=== PATIENT | female | born 2000 | race Caucasian/White ===

== ENCOUNTER 2025-01-21 00:05 | Day surgery (SDC) | payer OTHER, SELFPAY ==
[2025-01-06 13:57] VITALS: BMI 44.0
--- NOTE | 2025-01-06 14:04 | SUR.PREOP ---
Report to the Outpatient Waiting Room, entrance under the green pavilion located off [facility], at time 10a.m. on date 01/21/2025. Planned Procedure Time: 12p.m..? Time changes happen often and if your time is changed the preop area will call you the afternoon before. - You and your visitor will be asked to self-screen and do not enter if you have any COVID symptoms. Please call surgeon if you need to reschedule. - A mask is optional within the hospital at this time. Patients may have clear liquids (water, carbonated beverages, clear teas, apple juice) until 3 hours prior to surgery with a maximum of 20 ounces. - No food from midnight until time of surgery and no smoking, or chewing tobacco (or any form of nicotine). No chewing gum, candy or mints. Take only the following medications with a SIP of water on the morning of surgery: N/A DO NOT STOP ANY OF YOUR OTHER PRESCRIPTION MEDICATIONS PRIOR TO SURGERY EXCEPT THE FOLLOWING Hold all vitamins and supplements for 3 days per anesthesiologist. Medications to discontinue per physician N/A Date to take last dose N/A Please no make-up, nail british, hairspray, perfume, deodorant, or body powder the day of surgery.? No jewelry (including any body piercings) or valuables the day of surgery, leave them at home.? Please take a shower or bath the night before, or the morning of, surgery with an antibacterial soap.? Wear comfortable, loose fitting clothing.? Children are encouraged to wear pajamas. - Jewelry must be removed prior to entering the operating room.? Rings and piercings that are not removed may be cut off. - The hospital will not accept responsibility for valuables.? - Please leave all valuables, including medications, at home the day of surgery. If you are going home after surgery, a licensed racing car driver must drive you home.? - NO public transportation without another adult if you receive anesthesia. - We recommend that an adult stay with you for 24 hours following discharge. - We also recommend that you do not drive, make important decision, drink alcoholic beverages, or take any drugs that were not prescribed by your health care provider for at least 24 hours after your discharge time. Follow any additional instructions given to you from your surgeon. Telephone instructions given to Miranda Figueroa and asked if any additional questions and then verbalized understanding. Patient advised to call surgeon office or pre surgery nurse liaison [phone] if any additional questions.
[2025-01-21] VITALS (9 sets, daily range): BP systolic 107–142; BP diastolic 53–75; PULSE 66–96; RESP 14–70; TEMP 36.6–37; O2SAT 94–100; BMI 47.2
--- OUTSIDE RECORDS SUMMARY | 2025-01-21 00:08 | XMS_ITS | Data Portability ---
Author Organization [facility] [place] Address [address] [place] [address] Care Team Providers Care Government Affairs Manager Name Role Phone JIGAR HOLCOMB Primary Care Provider Assessment No assessment recorded. Plan of Treatment Reminders Order Date Submit Date Provider Last Modified By Organization Details Last Modified Time Details Appointments SURG Diagnosti c Lap 2024 07:30A Edin MCALLISTER MD Not available Not available Not available SURG POST OP 2024 11:15A Edin MCALLISTER MD Not available Not available Not available Lab test, urine 2023 024 [email or web address] [facility], [address], [place], [address], 06/17/2024 11:41:30 Referral None recorded. Procedures None recorded. Surgeries None recorded. Imaging US, transvagi nal 2023 024 efren [facility], [address], [address], [place], [address], 08/18/2024 21:47:02 US, pelvis 2023 024 efren [facility], [address], [address], [place], [address], 03/04/2024 20:53:52 US, transvagi nal 2023 024 efren [facility], [address], [address], [place], [address], 03/04/2024 20:53:52 US, pelvis, complete 2023 024 [email or web address] [place], [facility] [address], [place], [address], 03/10/2024 14:02:45 Medication Orders Depo-Prov era 150 mg/mL intramusc ular suspensio n 2023 024 [id number], [address] [facility], [place], [place], [id number], 06/17/2024 12:02:23 Patient TargetsNo targets recorded. Patient InstructionsNo instructions recorded. Reason for Referral None Reported. Results Created Date Observation Date Name Description Value Unit Range Abnormal Flag Note LastModifiedBy Organization Detail LastModifiedTime 06/17/20 24 06/17/2024 pregn jameel test, urine HCG negati ve Not Available [facility] [address], [place], [address], 06/17/2024 11:41:19 03/04/20 24 03/04/2024 US, pelvi s No observ ation record ed. [facility] [address], [place], [address], 03/04/2024 17:54:54 03/04/20 24 03/04/2024 US, trans vagin al No observ ation record ed. [facility] [address], [place], [address], 03/04/2024 17:55:04 03/04/20 24 03/04/2024 US, pelvi s No observ ation record ed. SOFIA [facility]row [address], [place], [address], 03/09/2024 13:08:05 08/12/20 24 08/13/2024 US, pelvi s No observ ation record ed. [facility] [address], [place], [address], 08/13/2024 17:20:09 08/12/20 24 08/13/2024 US, trans vagin al No observ ation record ed. [facility] [address], [place], [address], 08/13/2024 17:20:23 08/18/20 24 08/18/2024 US, trans vagin al No observ ation record ed. [email or web address] [facility] [address], [place], [address], 08/18/2024 15:22:53 08/18/20 24 08/18/2024 US, trans vagin al No observ ation record ed. [email or web address] [facility] [address], [place], [address], 08/24/2024 23:00:54 Result Notes None recorded. Procedures Surgical History Date Name Laterality Status Provider Name and Address Organization Details Recorded Time 024 Nexplanon Removal completed SHAI MCALLISTER MD [address], [place], [address], [facility] 06/17/2024 12:15:54 024 Control Implant Insertion completed NINA Soto [address], [place], [address], [facility] 01/28/2024 16:47:51 024 Date of Last Pap Smear completed Alma Rosa Oleary [facility] 03/03/2024 15:18:52 014 Appendectomy completed Alma Rosa Oleary [facility] 03/03/2024 15:19:56 014 Cholecystectomy completed Alma Rosa Oleary [facility] 03/03/2024 15:20:01 Imaging Results Imaging Date Name Status LastModified by Organization Details LastModified Time 03/04/2024 US, pelvis completed judah Newby [address], [place], [address], 03/04/2024 17:54:54 03/04/2024 US, transvaginal completed judah Bonilla e [address], [place], [address], 03/04/2024 17:55:04 03/04/2024 US, pelvis completed SOFIA Odalys [address], [place], [address], 03/09/2024 13:08:05 08/13/2024 US, pelvis completed judah Newby [address], [place], [address], 08/13/2024 17:20:09 08/13/2024 US, transvaginal completed judah Bonilla e [address], [place], [address], 08/13/2024 17:20:23 08/18/2024 US, transvaginal completed [email or web address] Mackenzievill e [address], [place], [address], 08/18/2024 15:22:53 08/18/2024 US, transvaginal completed [email or web address] [facility] [address], [place], [address], 08/24/2024 23:00:54 Procedure Notes None recorded. Medical Equipment None Reported. Allergies No known drug allergies Medications Name Sig Start Date Stop Date Status Note LastModified by Organization Details LastModified Time Aviane 0.1 mg-20 mcg tablet TAKE 1 TABLET BY MOUTH ONCE DAILY 01/20 completed Not Available Not Available Not Available doxycyclin e hyclate 100 mg capsule TAKE 1 CAPSULE BY MOUTH TWICE DAILY FOR 7 DAYS 01/20 completed Not Available Not Available Not Available metronidaz ole 500 mg tablet Take 1 tablet twice a day by oral route for 7 days. 09/14 completed Not Available Not Available Not Available nystatin-t riamcinolo ne 100,000 unit/gram- 0.1 % topical ointment APPLY TO THE AFFECTED AREA(S) (externa l vulva) BY TOPICAL ROUTE 2 TIMES PER DAY x 5 days 01/20 completed Not Available Not Available Not Available phenazopyr idine 100 mg tablet TAKE 1 TABLET BY MOUTH THREE TIMES DAILY NEEDED FOR 7 DAYS 01/20 completed Not Available Not Available Not Available Diflucan 200 mg tablet 1 tablet PO every other day x 3 doses. 09/14 completed Not Available Not Available Not Available medroxypro gesterone 150 mg/mL intramuscu lar suspension ADMINIST ER 1 ML IN THE MUSCLE EVERY 3 MONTHS active Not Available Not Available No t Available doxycyclin e hyclate 100 mg tablet Take 1 tablet twice a day by oral route for 7 days. 09/14 completed Not Available Not Available Not Available azithromyc in 500 mg tablet take 2 tablets by mouth at one time. 10/17 completed Not Available Not Available Not Available medroxypro gesterone 150 mg/mL intramuscu lar syringe INJECT 1 ML INTRAMUS CULARLY EVERY 3 MONTHS 2023 active Not Available Not Available Not Avai lable nitrofuran toin monohydrat e/macrocry stals 100 mg capsule TAKE 1 CAPSULE BY MOUTH EVERY 12 HOURS FOR 7 DAYS 01/20 completed Not Available Not Available Not Available Nexplanon 68 mg subdermal implant Inject 1 implant by subcutan eous route. 06/17 completed office supply Not Available Not Available Not Available Vitals Date Recorded Body height Body mass index (BMI) Body weight Systolic blood pressure Diastolic blood pressure Provider Name and Address Organization Details Last Updated DateTime 03/03/2024 172.72 cm 44.2 kg/m2 877137.3 8 g 114 mm[Hg] 77 mm[Hg] Alma Rosa Oleary [place] - [facility] 4 15:17:59 Date Recorded Body height Body mass index (BMI) Body weight Systolic blood pressure Diastolic blood pressure Provider Name and Address Organization Details Last Updated DateTime 06/17/2024 172.72 cm 44.4 kg/m2 410946.2 5 g 124 mm[Hg] 81 mm[Hg] Christine Gomez [facility] 4 11:34:42 Date Recorded Body height Body mass index (BMI) Body weight Systolic blood pressure Diastolic blood pressure Provider Name and Address Organization Details Last Updated DateTime 09/15/2024 172.72 cm 45.8 kg/m2 856202.3 g 124 mm[Hg] 82 mm[Hg] Kasey Eliza [facility] 4 12:01:35 Social History Question Answer Notes LastModified by Organizat ion Details LastModified Time Tobacco Smoking Status Never Smoker Dora mendoza, [facility] 01/21/2024 15:59:23 Do You Have An Advance Directive? No Information n ot available 08/17/2021 What Is Your Level Of Alcohol Consumption? Occasional Information not available 08/17/2021 How Many Years Have You Consumed Alcohol? 5 Information not available 01/21/2024 Are You Blind Or Do You Have Difficulty Seeing? No Information n ot available 08/17/2021 What Is Your Level Of Caffeine Consumption? Occasional Information not available 01/21/2024 In The 14 Days Before Symptom Onset, Have You Had Close Contact With A Laboratory-confirm ed COVID-19 While That Case Was Ill? No Information n ot available 08/17/2021 In The 14 Days Before Symptom Onset, Have You Had Close Contact With A Person Who Is Under Investigation For COVID-19 While That Person Was Ill? No Information not available 08/17/2021 Have You Been To An Area Known To Be High Risk For COVID-19? No Information not available 08/17/2021 Are You Deaf Or Do You Have Serious Difficulty Hearing? No Information not available 08/17/2021 What Type Of Diet Are You Following? REGULAR Information n ot available 08/17/2021 What Is The Highest Grade Or Level Of School You Have Completed Or The Highest Degree You Have Received? [id number] Information not available 08/17/2021 Are There Any Guns Present In Your Home? Yes Information not available 08/17/2021 Do You Use Protection During Sex? No Information not available 08/17/2021 Do You Use Your Seat Belt Or Car Seat Routinely? Yes Information not available 01/21/2024 Do You Have Smoke And Carbon Monoxide Detectors In Your Home? Yes Information not available 08/17/2021 How Much Tobacco Do You Smoke? No Information not available 09/14/2021 Do You Feel Stressed (tense, Restless, Nervous, Or Anxious, Or Unable To Sleep At Night)? [id number] Information not available 08/17/2021 Do You Use Any Illicit Or Recreational Drugs? No Information not available 08/17/2021 Do You Use Sunscreen Routinely? No Information not available 08/17/2021 Have You Used IV Drugs? No Information not available 08/17/2021 Sex: Unknown Functional Status Question Answer Note LastModified by Organizat ion Details LastModified Time Do you have difficulty walking or climbing stairs? No Information not available 01/21/2024 Are you able to walk? YESWOREST Information not available 08/17/2021 Are you able to care for yourself? Yes Information not available 01/21/2024 Do you have difficulty dressing or bathing? No Information not available 01/21/2024 What is your exercise level? None Information not available 08/17/2021 Mental Status None recorded. Family History Relationship Description Onset Age of this Age Resolved Age Notes LastModified by Organization Details LastModified Time Unspecified Relation Family history unknown [email or web address] Not available 2023 10:52:24 Mother Malignant tumor of breast [email or web address] Not available 2023 11:30:29 Medical History Condition Response Allergies (Food, seasonal, environmental ) N Other N Blood Transfusion N Drug/Latex Allergies/Reactions N Breast Cancer N Dermatologic Disorders N Lung Disease N Defects or Inherited Disease N Breast Problem N Gestational Diabetes N Hematologic disorders N Anesthesia Complications N History of STI N Deep Vein Thrombosis N Polycystic ovary syndrome N Anxiety Disorder N Autoimmune disease N Arthritis N Infertility N Polyps N Acid Reflux (GERD) Y History of abnormal pap N Cancer N Stroke N Varicosities N Neurologic/Epilepsy N Endometriosis N High Cholesterol N Headaches N Fibromyalgia N Kidney Disease N Heart Problems N Kidney or Bladder Problems N Thyroid Problems N GI Problems N Eating Disorder N Anemia N Art (IVF or FET) N Psychiatric Illness N Ovarian Cancer N Diabetes N Pulmonary (TB, Asthma) N Hepatitis/Liver Disease N No Past Medical History Y Eczema N Urinary Tract Infection N Abuse/Domestic Violence N Asthma N Trauma/Violence N Depression/ depression N Heart Disease N Pre-Eclampsia N Hypertension N Osteoporosis N Thrombophilias N Gynecological History Statement/Question Response Abnormal Pap N Flow Light Date of LMP 09/10/2024 On BCP's at Conception? N N Was last menstrual period normal N STIs/STDs Y HPV Vaccine N Duration of Flow (days) 2 13 Current Control Method Implant Date of control 02/04/2024 Sexually Active? Y BCPs Menses Monthly N Age of first menstrual cycle 13 Date of Last Pap Smear 01/21/2024 Sexual Problems? Y Desired Control Method Implant LMP Unknown N Obstetrics History GPAL:G 0 P 0 0 0 0 Type Value Living 0 Total 0 Past Encounters Encounter ID Performer Location Encounter Start Date Encounter Closed Date Diagnosis/Indication Diagnosis SNOMED-CT Code Diagnosis ICD10 Code Diagnosis Note [id number] Emily Carrillo [facility] [address] [address] 08/17/2021 10:33:43 08/17/2021 12:16:19 Vaginitis 98469329 N76.0 N94.10 Suspect BV/Yeast is culprit for dyspareuni a & irritation she is currently having.Korey l treat today & if stll having issues within 1-2wks return to discuss.Rx sent Time spent in visit is a total of 32 mins with at least 50% of visit consisting of counseling and review of plan of care.Addit ional precaution cassandra measures were taken to minimize potential exposure to the Covid-19 virus during this patient s visit, including available hand blasting machine operator upon arrive, temperatur e check and being asked a series of screening questions. All staff wore face coverings during this encounter, as well as provided additional cleaning and sanitizing of all surfaces, including countertop s, pens, chairs, door handles, light switches, etc, prior to and following the patient s visit. Reproducti ve care management 803890934 Z31.9 Trying to achieve pregnancyO nly began a few week agoMenses regular no issues advised PNV/Smokin g cessation/ healthy diet/exerc iseCan take up to a year of actively trying which is commonPart ner has had two kids with his previous partner. [id number] Emily Carrillo [facility] [address] [address] 09/14/2021 14:39:11 09/14/2021 15:39:44 Vaginitis 69324259 N76.0 N94.10 DARIELA sent today vag cxReviewed VCG's and will start this for possible component of vestibulit is.Will await vaginitis cx return.If DARIELA returns + we can also send refill for her partner as well (states no allergies) .Also recommende d Bits toiletries website for vaginal probiotics to restore vaginal health & might be a good idea since she has very frequent sex. Time spent in visit is a total of 15 mins with at least 50% of visit consisting of counseling and review of plan of care.Addit ional precaution cassandra measures were taken to minimize potential exposure to the Covid-19 virus during this patient s visit, including available hand blasting machine operator upon arrive, temperatur e check and being asked a series of screening questions. All staff wore face coverings during this encounter, as well as provided additional cleaning and sanitizing of all surfaces, including countertop s, pens, chairs, door handles, light switches, etc, prior to and following the patient s visit. [id number] [facility] [address] [address] 10/17/2021 15:35:56 10/17/2021 16:41:51 Venereal disease screening 152731777 Z11.3 Today, we discussed risks associated with continued +STD screens including but not limited to: PID/Infert ility/Pelv ic pain/Dyspa reuina/Uri nary issues/Inc rease risks SAB. Discussed the need to abstain until BOTH partners have completed a 7 day course of Doxycyclin e.Will likely need to continue vcg's to help restore vulvovagin al health & also consider use of vaginal probiotic previously discussed. Understand ing was verbalized by both partners. Will send medication with 1 RF so partner is able to be treated as well.He has confirmed no allergies to any medication s/foods. Contracept ion care management 493439113 Z30.9 Discussed all control options in depth and pt is interested in Nexplanon. Discussed all risks and benefits including irregular unschedule d bleeding. Pt verbalized understand ing and would like to proceed. She is aware that she needs to call us on the 1st day of her period to schedule placement. She & her partner have no health insurance. We discussed Office germain including device & insertion of device; and also informed them that our Rohit reyes would reach out and inquire about the assistance program [employer] has for patient's to see if the device itself could be covered. Other options would be to visit a [facility] near her & inquire about prices as well. Aware that this device needs to be placed within 5 days of onset of menses. [id number] Emily Carrillo , [facility] [address] [address] 11/29/2021 12:00:15 11/29/2021 14:45:16 Urinary symptoms 361093388 R39.9 Treat for UTITesting sent Vaginal irritation 65152 6004 N89.8 We again discussed strict vulvar care guidelines and to include Lady bits toiletries vaginal gel probiotic to help restore microbiome in this area. It may take up to 3mos before sx's are well managed. It is important to be consistent . Possibly avoid penile penetratio n for a bit until vaginal entry way is less irritated. If no improvemen ts after 3mos we need to consider refer to [facility] for further evaluation /managemen t. Time spent in visit is a total of 15 mins with at least 50% of visit consisting of counseling and review of plan of care.Addit ional precaution cassandra measures were taken to minimize potential exposure to the Covid-19 virus during this patient s visit, including available hand blasting machine operator upon arrive, harrison e check and being asked a series of screening questions. All staff wore face coverings during this encounter, as well as provided additional cleaning and sanitizing of all surfaces, including countertop s, pens, chairs, door handles, light switches, etc, prior to and following the patient s visit. [id number] Emily Carrillo , [facility] [address] [address] 01/21/2024 15:43:36 01/21/2024 17:24:51 Gynecologic examination 18894987 Z01.419 SELF PAY Take Calcium with Vitamin D 1200mg daily if not receiving in daily diet. It is strongly advised to have an annual flu shot and up can obtain at most pharmacies . If you have not had a TDap shot in the last 10 years you should obtain one as well. Discussed with patient & provided with informatio n regarding Gardisil vaccine to prevent the 4 strains for HPV that cause cervical cancer if under age 26. Encourage safe sexual practices, to use condoms and limit partners if not already in a monogamous relationsh ip. Do monthly self breast exams. Have mammogram yearly or every other year depending on family history. BRCA testing is now available for patients with strong genetic history of female cancer. If interested contact the office. Engage in daily exercise of low impact aerobic exercise 45-60 minutes 4-5 times weekly. Avoid tobacco and illicit drugs as well as using moderation with alcohol intake less than 1-2 8 oz beverages daily. This lifestyle behavior pattern will lead to less health conditions and longer life span. If BMI greater than 25 weight watchers or dietary consult advised. Patient received above instructio ns, and questions have been answered. If you have any questions please call or respond to this email. Patient was made aware of the patient portal and may obtain a paper copy of today's plan if desired. Pap sentSTD Screen declined (self pay)Geneti c Screen discussedC olon Screen naDexa Screen naRoutine Labs na Contracept ion care management 086583620 Z30.9 Discussed all control options in depth and pt is interested in Nexplanon. Discussed all risks and benefits including irregular unschedule d bleeding. Pt verbalized understand ing and would like to proceed.Sh e & her partner have no health insurance. We discussed Office germain including device & insertion of device;She has no period on Depo injections ; her last injection was November 2023 and her next will come up in February which is when we need to place nexplanon. [id number] Kassie Virk [facility] [address],[facility] [place] [address] 01/28/2024 16:19:35 01/28/2024 16:53:14 Insertion of subcutaneous contraceptive 089809702 Z30.46 UPT (-)r/b/a of nexplanon discussed with ptconsents reviewed and signednexp lanon placed (see procedure note)preca utions reviewed Contracept ion care management 112543323 Z30.9 [id number] [facility] [address],[place] [address] 03/03/2024 15:04:51 03/03/2024 15:37:37 Pain in pelvis 57995216 R10.2 This patient is a 23-year-ol d female with pelvic pain. We have agreed to complete the evaluation with pelvic ultrasound . The patient will return after the pelvic ultrasound to discuss those findings and to develop a treatment plan. A comprehens mellisa history and physical exam was performed today. We spent over 25 minutes face-to-fa ce. The patient was given precaution s. She will contact clinic if pelvic pain increases in frequency or intensity. Also notify clinic of any new symptoms associated with pelvic pain. She does not appear to have an acute pelvic infection today, but was asked to contact us Immediatel y with nausea, vomiting, fever, chills. Monogamous [id number] Mary Mondragon [facility] [address],[facility] [place] [address] 03/04/2024 15:16:25 03/04/2024 16:07:59 Pain in pelvis 41935878 R10.2 [id number] SHAI MCALLISTER MD [facility] [address],[place] [address] 06/17/2024 10:44:41 06/17/2024 12:21:19 Screening procedure 83862398 Z13.9 Initiation of depot contraception done [id number] 81416 Z30.013 - would like to transition to depo, has used previously with success- r/b and side effects discussed with patient who voices understand ing Removal of subcutaneous contraceptive 715692262 Z30.46 - Nexplanon removed without issue and intact [id number] Mary Mondragon [facility] [address] [address] 08/18/2024 13:21:08 08/18/2024 14:17:44 Pain in pelvis 26064284 R10.2 [id number] SHAI MCALLISTER MD [facility] [address] [address] 09/15/2024 10:52:17 09/16/2024 09:12:43 Pain in pelvis 05552312 R10.2 - reports positional dyspareuni a, L>R; worsening since just prior to Nexplanon removal- hx of extremely painful and heavy periods, improved on progestero ne only control- pelvic US overall normal, L ovary better seen transabdom inally- Discussed possibilit y of endometrio sis, given period history and dyspareuni a; scar tissue possibly present causing elevation of L ovary and pelvic pain- recommend continuing depo provera for contracept ion and possible control of endometrio sis- discussed surgery is only definitive diagnosis however can be presumed if controlled with hormonal contracept ion- if pain returns, could also consider Orlissa vs [facility] Concerns Section Related Observation LastModified by Organization Detai ls LastModified Time None Recorded Concern Status LastModified by Organization Details LastModified Time None Recorded Advance Directives Directive N: Payers Encounter Date Sequence Insurance Name Policy Number Policy Barrett Covered Member ID Barrett Member ID Guarantor Name 03/03/2024 1 [place] [employer] Miranda Figueroa [id number] Miranda Figueroa 03/04/2024 1 [place] [employer] Miranda Figueroa [id number] Miranda Figueroa 06/17/2024 1 [facility] (MEDICAID HMO) [id number] Miranda Figueroa [id number] Miranda Figueroa 08/18/2024 1 [facility] (MEDICAID HMO) [id number] Miranda Figueroa [id number] Miranda Figueroa 09/15/2024 1 [facility] (MEDICAID HMO) [id number] Miranda Figueroa [id number] Miranda Figueroa Notes Date Note Type Note Provider Name and Address Organization Details Recorded Time 03/03/2024 text/html Beer-Pelvic PainReported bypatient.Location :left; lower abdominal Onset/Timin-2 weeks; sudden Duration:persisten t Quality:sharp; dull; tender; aching; pressure increased with intercourse Severity:moderate; pain level 5/10 Context:unrelated to menstrual cycle Alleviating Factors:none Aggravating Factors:none Associated Symptoms:no abdominal pain; no back pain; no chills; no constipation; no diarrhea; no vaginal discharge; no pain with urination; normal emptying of bladder; no feelings of urgency; no blood in the urine; no sexual abuse; no ectopic pregnancies; no endometriosis; no urinary frequency; no vaginal itching or irritation;dyspare unia Emily Carrillo FABI- [address], [place], [address], [facility] 03/03/2024 15:31:52 06/17/2024 text/html Patient presents for Nexplanon insertion. She had the device placed in 02/2024 however has had arm pain radiating from the site since that time. She desire removal and initation of depo provera. She has used depo previously with her doing her injections without issue. SHAI MCALLISTER MD [address], [place], [address], [facility] 06/17/2024 12:16:15 09/15/2024 text/html Patient presents for ultrasound follow up of pelvic pain and dyspareunia. She reports pain that started just before her Nexplanon was removed. Dyspareunia worse with certain positions, L>R. She reports a history of extremely heavy and painful periods that vastly improved since starting progesterone only contraception. She is concerned she may have endometriosis. SHAI MCALLISTER MD [address], [place], [address], [facility] 09/15/2024 22:56:36 OBGyn Episode No OBEpisode recorded.
[2025-01-21] MEDS: ACETAMINOPHEN 500 MG TABLET 1000 MG PO (06:20)
[2025-01-21] MEDS: KETOROLAC 15 MG/ML VIAL (*BKC) IV PUSH (06:21)
--- NOTE | 2025-01-21 06:57 | WPDANESEPPF ---
Anes - Initial Pre Proc Eval Procedure: Operation Date: 01/21/25 07:30 Proposed Procedures p Diagnostic Laparoscopy with Excision of Endometriosis - Fidencio Knutson MD Date/Time: 01/21/25 06:57 Surgeon: Fidencio Knutson MD Pre Op Diagnosis: pelvic pain Patient Data Age: 24 Gender: F Height: 1.73 m Weight: 140.8 kg Last Vital Signs Temp 36.6 C 01/21/25 06:25 Pulse 79 01/21/25 06:25 Resp 14 01/21/25 06:25 BP 128/72 01/21/25 06:25 Pulse Ox 99 01/21/25 06:25 O2 Del Method Room Air 01/21/25 06:25 Allergies Allergy/AdvReac Type Severity Reaction Status Date / Time No Known Allergies Allergy Verified 01/21/25 06:07 Home Medications ?Medication ?Instructions ?Recorded ?Confirmed ?Type medroxyprogesterone 150 mg/mL 150 mg IM .COMPLEX 01/06/25 01/06/25 History intramuscular suspension Patient hx anesthesia problems: none Family hx anesthesia problems: none Results Review: All pre-operative results and documents have been reviewed as part of the pre-operative evaluation. [facility] Social History Social History Smoking status: Never smoker Living arrangements: with family Anes - Eval Final PreProcedure Day of Procedure 01/21/25 06:57 Patient weight: morbidly obese Heart: regular rate and rhythm Lungs: clear to auscultation Airway: Mallampati scale class II Neurological: alert and oriented Last oral intake: >/= 8 hours ASA classification: III Emergent: no Anesthetic plan: proceed Anesthesia type and monitoring: general ETT and standard monitoring Results Review: All pre-operative results and documents have been reviewed as part of the pre-operative evaluation. Informed Consent: The patient's anesthetic plan and its attendant risks and benefits were discussed with the patient/family/POA. Questions were solicited and answers provided to the satisfaction of the patient/family/POA.
[2025-01-21] MEDS: SCOPOLAMINE 1 MG PATCH 1 PATCH TRANSDERM (07:15)
[2025-01-21] MEDS: LACTATED RINGERS 1,000 ML 30 ML IV CONT (07:15)
[2025-01-21 07:16] LABS: BEDSIDEPREGUCG Negative (Negative)
--- NOTE | 2025-01-21 07:23 | PM.IMHP ---
H&P: HPI History of Present Illness Date/Time: 01/21/25 07:23 Chief Complaint: pelvic pain Narrative: Patient is a 24 year old female who presents for diagnostic laparoscopy for pelvic pain. She reports positional dyspareunia as well as a long hx of painful periods, only improved with suppression of menses. However pain still present with menstrual suppression. Hx of cholecystectomy and appendectomy in 2013. Discussed expectant management vs medical vs surgical exploration and possible excision of endometriosis. Patient desires to proceed with diagnostic laparoscopy and possible endometriosis excision. Review of Systems Review of Systems: All systems reviewed & are unremarkable except as noted in HPI and below [facility] Social History Social History Smoking status: Never smoker Living arrangements: with family Meds Home Medications and Allergies Home Medications ?Medication ?Instructions ?Recorded ?Confirmed ?Type medroxyprogesterone 150 mg/mL 150 mg IM .COMPLEX 01/06/25 01/06/25 History intramuscular suspension Allergies Allergy/AdvReac Type Severity Reaction Status Date / Time No Known Allergies Allergy Verified 01/21/25 06:07 Vital Signs Vital Signs - 24 hr 01/21/25 06:25 Temperature 97.8 F Pulse Rate 79 Respiratory Rate 14 Blood Pressure 128/72 Pulse Oximetry 99 Oxygen Delivery Room Air Exam Const: General: comfortable and no acute distress HENMT: Mouth: Yes moist mucous membranes Resp: Effort & Inspection: normal respiratory effort Cardio: Rate: regular rate Skin: General skin exam: normal color Extrem: General: normal to inspection Psych: Mental Status: mental status grossly normal Assessment and Plan Assessment and plan (1) Pelvic pain: Code(s): R10.2 - Pelvic and perineal pain Status: Acute Assessment and Plan: - patient reports long hx of painful periods and dyspareunia - has tried mestrual suppression with some improvement in pain - concern for possible endometriosis - discussed risks, benefits, and alternatives to diagnostic laparoscopy and possible endometriosis excision - patient desires to proceed with surgery as scheduled
--- NOTE | 2025-01-21 07:32 | WPDHPUPDATE1 ---
History and Physical Update Update Date/Time: 01/21/25 07:32 History and Physical has been reviewed, including an updated exam of the patient. There are NO changes in the patient's condition. Risks, benefits, and alternatives have been discussed and questions answered. Patient agrees to proceed with procedure.
[2025-01-21] MEDS: LIDO 1%/EPINEPHRINE 1:100,000 20 ML VIAL 8 ML INFILTRATE (08:12)
[2025-01-21] MEDS: fentaNYL CITRATE INJ (*CRX) 100 MCG/2 ML VIAL 25 MCG IV PUSH ×4 (08:39→09:09)
[2025-01-21] MEDS: oxyCODONE HCL (*CRX) 5 MG TAB IR PO (09:55)
[2025-01-21] MEDS: ONDANSETRON INJ 4 MG/2 ML VIAL IV PUSH (09:55)
--- NOTE | 2025-01-21 16:16 | P.OP_ITS ---
Procedure Note - Detailed Date of Procedure 01/21/25 Pre-op Diagnosis pelvic pain Post-op Diagnosis Same (normal appearing pelvis) Procedure Performed diagnostic laparoscopy Surgeon Fidencio Knutson MD Anesthesia General Findings normal appearing uterus, ovaries and fallopian tubes; normal anterior peritoneum; no scar tissue; clear and normal posterior cul de sac Description of Procedure The patient was taken to the operating room with IVFs running. She was placed into the dorsal supine position where she received general endotracheal anesthesia without difficulty. The patient was then placed in a dorsal lithotomy position, using Wilner stirrups. Exam under anesthesia revealed the above findings. Patient was then prepped and draped in the normal sterile fashion. A time-out procedure was performed and the OR team agreed on the patient and procedure. A red rubber catheter was inserted under sterile technique, draining clear urine. A bivalve speculum was inserted into the vagina. The anterior lip of the cervix was grasped with a single tooth tenaculum. An acorn uterine manipulator was then inserted into the cervix. The speculum was then removed. Gloves were then changed. Attention was turned to the patient's abdomen where the umbilicus was incised w ith a scalpel, making a 5 mm vertical incision. While tenting the patient's abdomen a 5 mm bladeless trocar was inserted into the peritoneal cavity under direct vision. Placement was confirmed by opening pressure of 6mmHg. Underlying organs were inspected and found to be free of injury. The patient's pelvis was examined and the above listed findings noted. At this time, a 5 mm horizontal skin incision was made with the scalpel in the left lower quadrant. A 5 mm bladeless trocar was then inserted into the peritoneal cavity under direct visualization. The abdomen and pelvis were then inspected. The appendix and gallbladder were surgically absent. The liver was normal in appearance. Pictures were taken The secondary trocars were then removed from the patient's abdomen. The pneumoperitoneum was expelled and the umbilical trocar removed. The skin incisions were then reapproximated with 4-0 Biosyn in a subcuticular fashion. All incisions were then injected with local anesthetic. Attention was then turned to the patient's vaginal vault. The acorn uterine manipulator and tenaculum were then removed. A bivalve speculum was inserted into the patient's vagina. The cervix was found to be hemostatic. The speculum was removed. The patient tolerated the procedure well. Sponge, lap, needle, and instrument counts were correct X2. The patient was taken out of the dorsal lithotomy position and was awakened from anesthesia and taken to the recovery room in stable condition. Estimated Blood Loss 5 Pathology None sent Complications No immediate complications Condition Stable Disposition Same day
== END 2025-01-21 10:35 | disposition home or self-care (01) ==
PROVIDERS: PCP Internal Medicine; Visit Provider Obstetrics & Gynecology
PROC: (CPT 49320; principal; 2025-01-21 07:30)
DX: R10.2 Pelvic and perineal pain (principal); N94.10 Unspecified dyspareunia; N94.6 Dysmenorrhea, unspecified
CPT/HCPCS: 49320; A9270; J1100; J1885; J2004; J2250; J2270; J2405; J2704; J3010; J7030; J7120

== ENCOUNTER 2025-06-13 00:54 | Day surgery (SDC) | payer OTHER, SELFPAY ==
--- NOTE | 2025-06-01 14:09 | SUR.PREOP ---
Report to the Outpatient Waiting Room, entrance under the green pavilion located off [facility], at time _0730_ on date _06/13/2025_. Planned Procedure Time: _0930_.? Time changes happen often and if your time is changed the preop area will call you the afternoon before. - You and your visitor will be asked to self-screen and do not enter if you have any COVID symptoms. Please call surgeon if you need to reschedule. - A mask is optional within the hospital at this time. Patients may have clear liquids (water, carbonated beverages, clear teas, apple juice) until 3 hours (0630) prior to surgery with a maximum of 20 ounces. - No food from midnight until time of surgery and no smoking, or chewing tobacco (or any form of nicotine). No chewing gum, candy or mints. Take only the following medications with a SIP of water on the morning of surgery: _NA_ DO NOT STOP ANY OF YOUR OTHER PRESCRIPTION MEDICATIONS PRIOR TO SURGERY EXCEPT THE FOLLOWING Hold all vitamins and supplements for 3 days per anesthesiologist. Medications to discontinue per physician _IBUPROFEN_ Date to take last dose_NA_ Please no make-up, nail thai, hairspray, perfume, deodorant, or body powder the day of surgery.? No jewelry (including any body piercings) or valuables the day of surgery, leave them at home.? Please take a shower or bath the night before, or the morning of, surgery with an antibacterial soap.? Wear comfortable, loose fitting clothing.? - Jewelry must be removed prior to entering the operating room.? Rings and piercings that are not removed may be cut off. - The hospital will not accept responsibility for valuables.? - Please leave all valuables, including medications, at home the day of surgery. If you are going home after surgery, a licensed rivet driver must drive you home.? - NO public transportation without another adult if you receive anesthesia. - We recommend that an adult stay with you for 24 hours following discharge. - We also recommend that you do not drive, make important decision, drink alcoholic beverages, or take any drugs that were not prescribed by your health care provider for at least 24 hours after your discharge time. Follow any additional instructions given to you from your surgeon. Telephone instructions given to _MAUREEN_and asked if any additional questions and then verbalized understanding. Patient advised to call surgeon office or pre surgery nurse liaison [phone] if any additional questions.
[2025-06-01 14:13] VITALS: BMI 48.7
[2025-06-13] VITALS (9 sets, daily range): BP systolic 97–145; BP diastolic 57–82; PULSE 87–94; RESP 14–18; TEMP 36.2–36.6; O2SAT 94–99
--- NOTE | 2025-06-13 07:28 | PM.IMHP ---
H&P: HPI History of Present Illness Date/Time: 06/13/25 07:28 Chief Complaint: desires sterilization Narrative: Patient is a 24 year old female who presents for bilateral salpingectomy. She does not desire any future pregnancies. She desires permanent sterilization and understands that this is not reversible. She declines reversible methods of contraception. Denies headaches, abdominal pain, fevers, or chills. Review of Systems Review of Systems: All systems reviewed & are unremarkable except as noted in HPI and below [facility] Social History Social History Smoking packs per day: 0.25 Smoking cigarettes per day: 5.0 Years smoked: 2 Smoking pack-years: 0.50 Smoking status: Former smoker Tobacco type: cigarettes Second hand tobacco smoke exposure: No Alcohol intake: never Substance use: never Substance use type: does not use Living arrangements: with family Spiritual care concerns: No Meds Home Medications and Allergies Home Medications ?Medication ?Instructions ?Recorded ?Confirmed ?Type medroxyprogesterone 150 mg/mL 150 mg IM .COMPLEX 01/06/25 06/08/25 History intramuscular suspension omeprazole 40 mg capsule,delayed 40 mg PO DAILY #30 caps 05/20/25 06/08/25 Rx release ibuprofen 600 mg tablet 600 mg PO Q8H 06/01/25 06/08/25 History Allergies Allergy/AdvReac Type Severity Reaction Status Date / Time No Known Allergies Allergy Verified 06/08/25 14:53 Exam Const: General: comfortable and no acute distress Resp: Effort & Inspection: normal respiratory effort Cardio: Rate: regular rate Skin: General skin exam: normal color Extrem: General: normal to inspection Psych: Mental Status: mental status grossly normal Assessment and Plan Assessment and plan (1) Encounter for sterilization: Code(s): Z30.2 - Encounter for sterilization Status: Acute Assessment and Plan: - patient does not desire future and declines reversible methods of contraception - desires permanent sterilization and understands this is not reversible - risks and benefits discussed with patient - will proceed with laparoscopic bilateral salpingectomy
[2025-06-13] MEDS: ACETAMINOPHEN 500 MG TABLET 1000 MG PO (08:25)
[2025-06-13] MEDS: KETOROLAC 15 MG/ML VIAL (*BKC) IV PUSH (08:35)
--- NOTE | 2025-06-13 08:37 | WPDHPUPDATE1 ---
History and Physical Update Update Date/Time: 06/13/25 08:37 History and Physical has been reviewed, including an updated exam of the patient. There are NO changes in the patient's condition. Risks, benefits, and alternatives have been discussed and questions answered. Patient agrees to proceed with procedure.
[2025-06-13 09:09] LABS: BEDSIDEPREGUCG Negative (Negative)
--- NOTE | 2025-06-13 09:34 | WPDANESEPPF ---
Anes - Initial Pre Proc Eval Procedure: Operation Date: 06/13/25 10:00 Proposed Procedures p Laparoscopic Bilateral Salpingectomy - Fidencio Knutson MD Date/Time: 06/13/25 09:34 Surgeon: Fidencio Knutson MD Pre Op Diagnosis: desires sterilization Patient Data Age: 24 Gender: F Height: 1.73 m Weight: 144.4 kg Last Vital Signs Temp 36.2 C L 06/13/25 08:13 Pulse 93 06/13/25 08:13 Resp 16 06/13/25 08:13 BP 145/82 H 06/13/25 08:13 Pulse Ox 99 06/13/25 08:13 O2 Del Method Room Air 06/13/25 08:13 Allergies Allergy/AdvReac Type Severity Reaction Status Date / Time No Known Allergies Allergy Verified 06/08/25 14:53 Home Medications ?Medication ?Instructions ?Recorded ?Confirmed ?Type medroxyprogesterone 150 mg/mL 150 mg IM .COMPLEX 01/06/25 06/08/25 History intramuscular suspension omeprazole 40 mg capsule,delayed 40 mg PO DAILY #30 caps 05/20/25 06/13/25 Rx release ibuprofen 600 mg tablet 600 mg PO Q8H PRN pain 06/01/25 06/13/25 History Laboratory Tests 06/13/25 09:07 POC Urine HCG, Qual Negative (Negative) Patient hx anesthesia problems: none Family hx anesthesia problems: none Results Review: All pre-operative results and documents have been reviewed as part of the pre-operative evaluation. [facility] Social History Social History Smoking packs per day: 0.25 Smoking cigarettes per day: 5.0 Years smoked: 2 Smoking pack-years: 0.50 Smoking status: Former smoker Tobacco type: cigarettes Second hand tobacco smoke exposure: No Alcohol intake: never Substance use: never Substance use type: does not use Living arrangements: with family Spiritual care concerns: No Anes - Eval Final PreProcedure Day of Procedure 06/13/25 09:34 Patient weight: morbidly obese Heart: regular rate and rhythm Lungs: decreased breath sounds Airway: Mallampati scale class II Neurological: alert and oriented Last oral intake: >/= 8 hours ASA classification: III Emergent: no Anesthetic plan: proceed Anesthesia type and monitoring: general ETT and standard monitoring Results Review: All pre-operative results and documents have been reviewed as part of the pre-operative evaluation. Informed Consent: The patient's anesthetic plan and its attendant risks and benefits were discussed with the patient/family/POA. Questions were solicited and answers provided to the satisfaction of the patient/family/POA.
[2025-06-13] MEDS: SCOPOLAMINE 1 MG PATCH 1 PATCH TRANSDERM (09:38)
--- NOTE | 2025-06-13 10:22 | S_PTH ---
PATIENT: Miranda Cano LOC: [facility] U#:[id number] AGE/SX: 24/F ROOM: RE06/13/[address]: Fidencio Knutson MD : 2000 BED: DIS: 06/13/2025 SPEC #: [id number] RECD: 06/13/25 12:02 STATUS: KATELYN RAY #: [id number] OLLIE: 06/13/25 10:[address]: Fidencio Knutson DEPT: [facility] RECD BY: Brianna Garcia ENTERED: 06/13/25 12:02 SP TYPE: Surgical OTHR DR: OCULAR PATHOLOGIST PHYSICIAN Tissues: A - Fallopian Tube Bilateral Procedures: Gross and Microscopic Level 2 Hematoxylin and Eosin Stain
[2025-06-13] MEDS: LACTATED RINGERS 1,000 ML 30 ML IV CONT ×2 (10:35)
--- NOTE | 2025-06-13 10:49 | W.PM.PROC2 ---
Procedure Note - Detailed Date of Procedure 06/13/25 Pre-op Diagnosis desires sterilization Post-op Diagnosis Same Procedure Performed laparoscopic bilateral salpingectomy Surgeon Fidencio Knutson MD Anesthesia General Indications desires permanent sterilization Findings normal appearing uterus, bilateral tubes and bilateral ovaries; dense and filmy adhesions between left pelvic sidewall, left ovary and descending colon Description of Procedure With IV fluids infusing, the patient was taken to the operating room. The patient was placed in supine position. General anesthesia with endotracheal intubation was given. A time-out took place. The patient was placed in dorsal lithotomy position using Wilner stirrups and she was prepped and draped in the usual sterile fashion. The bladder was drained using a red rubber catheter. A sterile speculum was placed vaginally, the anterior lip of the cervix was grasped with a single-tooth tenaculum and the acorn uterine manipulator was placed without difficulty. The speculum was removed. The surgeon's gloves were changed and attention was turned to the abdomen. A 5 mm incision was made in the umbilicus. Under direct visualization with the scope, the umbilical port was inserted without difficulty. Another two trocars were placed under direct visualization in the left upper and left lower quadrants. The patient was placed in Trendelenburg and inspection of the pelvis noted the above findings. Appropriate pictures were taken. The adhesions between the left ovary, left pelvic sidewall and colon were ligated using the ligasure device. Using the LigaSure device, a left salpingectomy was performed in the usual fashion. Care was taken to avoid the IP ligament. The salpingectomy went smoothly. The same procedure was repeated on the right side. The instruments were all removed from the abdomen and the CO2 gas was allowed to escape. The three skin incisions were reapproximated with 4-0 Polysorb in a subcuticular manner, followed by skin glue. The acorn manipulator and single tooth tenaculum was removed from the uterus and cervix, respectively. The tenaculum sites were hemostatic. All instruments were removed from the vagina. At the end of the case, instrument, sponge and needle counts were correct x 2. The patient was awakened from general anesthesia and was taken to PACU in stable condition. Estimated Blood Loss 10 Pathology Yes Complications No immediate complications Condition Stable Disposition Same day
[2025-06-13] MEDS: fentaNYL CITRATE INJ (*CRX) 100 MCG/2 ML VIAL 25 MCG IV PUSH ×8 (10:50→11:25)
[2025-06-13] MEDS: oxyCODONE HCL (*CRX) 5 MG TAB IR PO (12:10)
[2025-06-13] MEDS: ONDANSETRON INJ 4 MG/2 ML VIAL IV PUSH (12:37)
== END 2025-06-13 13:02 | disposition home or self-care (01) ==
PROVIDERS: Visit Provider Obstetrics & Gynecology
PROC: (CPT 49320; principal; 2025-06-13 10:00)
DX: Z30.2 Encounter for sterilization (principal); N73.6 Female pelvic peritoneal adhesions (postinfective); E66.01 Morbid (severe) obesity due to excess calories; Z68.42 Body mass index [BMI] 45.0-49.9, adult; Z79.1 Long term (current) use of non-steroidal anti-inflammatories (NSAID); Z87.891 Personal history of nicotine dependence
CPT/HCPCS: 58661; 88302; A9270; J1100; J1885; J2250; J2270; J2405; J2704; J3010; J7120

== ENCOUNTER 2025-06-23 01:11 | Day surgery (SDC) | payer OTHER, SELFPAY ==
[2025-06-08 14:51] VITALS: BMI 48.6
[2025-06-23] MEDS: LACTATED RINGERS 1,000 ML 150 ML IV CONT (13:23)
--- NOTE | 2025-06-23 13:24 | P.HP_ITS ---
H&P: HPI History of Present Illness Date/Time: 06/23/25 13:24 Chief Complaint: GERD -occasional dysphagia-abdominal pain-diarrhea Narrative: this patient has a diagnosis of eosinophilic esophagitis which he was 15 years old, however she has not had follow-up endoscopy since then and complains of occasional dysphagia to solid foods but no to liquids. She is on and intermittent dose of omeprazole 20 mg q.d.. In addition she has been complaining of diffuse abdominal pain, and occasional diarrhea episodes. She is referred for EGD and colonoscopy. Review of Systems Review of Systems: All systems reviewed & are unremarkable except as noted in HPI and below [facility] Social History Social History Smoking packs per day: 0.25 Smoking cigarettes per day: 5.0 Years smoked: 2 Smoking pack-years: 0.50 Smoking status: Former smoker Tobacco type: cigarettes Second hand tobacco smoke exposure: No Alcohol intake: never Substance use: never Substance use type: does not use Living arrangements: with family Additional living arrangements comments: fiance Spiritual care concerns: No Meds Home Medications and Allergies Home Medications ?Medication ?Instructions ?Recorded ?Confirmed ?Type omeprazole 40 mg capsule,delayed 40 mg PO DAILY #30 ca ps 05/20/25 06/13/25 Rx release ibuprofen 600 mg tablet 600 mg PO Q8H PRN pain #30 t abs 06/13/25 06/13/25 Rx Allergies Allergy/AdvReac Type Severity Reaction Status Date / Time No Known Allergies Allergy Verified 06/08/25 14:53 Exam Const: General: cooperative and healthy appearing Resp: Effort & Inspection: normal respiratory effort and able to speak in complete sentences Auscultation: clear to auscultation bilaterally Cardio: Rate: regular rate Rhythm: regular rhythm GI: Inspection: normal to inspection GI Palp: No No hepatosplenomegaly present Auscultation: normal bowel sounds Rectal Exam: deferred Skin: General skin exam: normal color Psych: Appearance: grossly normal Mental Status: mental status grossly normal Assessment and Plan Assessment and plan (1) Diarrhea: Qualifiers: Diarrhea type: unspecified type Qualified Code(s): R19.7 - Diarrhea, unspecified Code(s): R19.7 - Diarrhea, unspecified Status: Acute Assessment and Plan: The patient is deemed a good candidate for the procedures. Consent signed. Will proceed. (2) Eosinophilic esophagitis: Code(s): K20.0 - Eosinophilic esophagitis Status: Acute
[2025-06-23] MEDS: SIMETHICONE ORAL SUSPENSION 20 MG/0.3 ML 30 ML BOTTLE 1.8 ML PO (13:25)
--- NOTE | 2025-06-23 13:26 | P.PNAN_ITS ---
Anes - Initial Pre Proc Eval Procedure: Operation Date: 06/23/25 14:00 Proposed Procedures p EGD & Diagnostic Colonoscopy - Jak Huynh MD Date/Time: 06/23/25 13:26 Surgeon: Jak Huynh MD Pre Op Diagnosis: Dysphagia,Eosinophilic esophagitis, lower abd pain Patient Data Age: 24 Gender: F Height: 1.73 m Weight: 145.2 kg Allergies Allergy/AdvReac Type Severity Reaction Status Date / Time No Known Allergies Allergy Verified 06/08/25 14:53 Home Medications ?Medication ?Instructions ?Recorded ?Confirmed ?Type omeprazole 40 mg capsule,delayed 40 mg PO DAILY #30 ca ps 05/20/25 06/13/25 Rx release ibuprofen 600 mg tablet 600 mg PO Q8H PRN pain #30 t abs 06/13/25 06/13/25 Rx Patient hx anesthesia problems: none Family hx anesthesia problems: none Results Review: All pre-operative results and documents have been reviewed as part of the pre- operative evaluation. [facility] Past Medical History Medical History (Updated 06/23/25 @ 13:27 by Efrem Shields MD) GERD (gastroesophageal reflux disease) Dysphagia Surgical History Surgical History S/P laparoscopy Social History Social History Smoking packs per day: 0.25 Smoking cigarettes per day: 5.0 Years smoked: 2 Smoking pack-years: 0.50 Smoking status: Former smoker Tobacco type: cigarettes Second hand tobacco smoke exposure: No Alcohol intake: never Substance use: never Substance use type: does not use Living arrangements: with family Additional living arrangements comments: fiance Spiritual care concerns: No Anes - Eval Final PreProcedure Day of Procedure 06/23/25 13:26 Patient weight: morbidly obese Heart: regular rate and rhythm Lungs: clear to auscultation Airway: Mallampati scale class II Neurological: alert and oriented Last oral intake: >/= 8 hours ASA classification: III Emergent: no Anesthetic plan: proceed Anesthesia type and monitoring: general GIVS and standard monitoring Results Review: All pre-operative results and documents have been reviewed as part of the pre- operative evaluation. Informed Consent: The patient's anesthetic plan and its attendant risks and benefits were discussed with the patient/family/POA. Questions were solicited and answers provided to the satisfaction of the patient/family/POA.
[2025-06-23 13:29] VITALS: BP 138/80; PULSE 97; RESP 16; TEMP 36.1; O2SAT 99; BMI 47.5
[2025-06-23 13:34] LABS: BEDSIDEPREGUCG Negative (Negative)
[2025-06-23] MEDS: BENZOCAINE (*SP) 60 ML SPRAY CAN (HURRICAINE) 1 SPRAY MUCOUS MEM (13:34)
--- NOTE | 2025-06-23 13:49 | S_PTH ---
PATIENT: Miranda Cano LOC: [facility]#:[id number] AGE/SX: 24/F ROOM: RE06/23/[address]: Jak Huynh MD : [id number] BED: DIS: 06/23/2025 SPEC #: [id number] RECD: 06/24/25 07:10 STATUS: KATELYN REQ #: [id number] OLLIE: 06/23/25 13:[address]: Jak Huynh DEPT: [facility] Surgical RECD BY: Brianna Garcia ENTERED: 06/24/25 07:11 SP TYPE: Surgical OTHR DR: Ruddy HermosilloMD Tissues: A - Esophageal Biopsy B - Colon Biopsy C - Colon Biopsy Procedures: Hematoxylin and Eosin Stain Gross and Microscopic Level 4
--- NOTE | 2025-06-23 13:50 | SUR.OPER ---
EGD: [id number] COLON: Start 134
[2025-06-23 14:05] VITALS: BP 121/101; PULSE 92; RESP 24; O2SAT 99
[2025-06-23 14:15] VITALS: BP 127/86; PULSE 86; RESP 26; O2SAT 100
[2025-06-23 14:25] VITALS: BP 127/94; PULSE 93; RESP 26; O2SAT 100
== END 2025-06-23 14:31 | disposition home or self-care (01) ==
PROVIDERS: Anesthesiology; PCP Internal Medicine; Referring Provider Nurse Practitioner Family; Visit Provider Internal Medicine Gastroenterology
PROC: 0DJ08ZZ Inspection of Upper Intestinal Tract, Via Natural or Artificial Opening Endoscopic (ICD-10-PCS; CPT 45378; principal; 2025-06-23 14:00)
DX: K20.0 Eosinophilic esophagitis (principal); K29.30 Chronic superficial gastritis without bleeding; E66.01 Morbid (severe) obesity due to excess calories; Z68.42 Body mass index [BMI] 45.0-49.9, adult; Z79.1 Long term (current) use of non-steroidal anti-inflammatories (NSAID); Z98.890 Other specified postprocedural states; Z87.891 Personal history of nicotine dependence; Z87.19 Personal history of other diseases of the digestive system
CPT/HCPCS: 43239; 45380; 88305; J2003; J2704; J7120

== ENCOUNTER 2025-08-29 08:22 | Outpatient (CLI) | payer OTHER, SELFPAY ==
--- NOTE | ~2025-08-29 | CT_ITS ---
EXAMINATION: CT abdomen pelvis w con DATE: 08/29/2025 08:53 INDICATION: Left lower quadrant abdominal pain. TECHNIQUE: Computed tomography (CT) of the abdomen and pelvis was performed with 100 mL Omnipaque 350 intravenous contrast. Automated exposure control and iterative reconstruction technique were employed. The dose-length product was 1589.29 mGy-cm. COMPARISON: None. FINDINGS: The visualized portions of the lung bases demonstrate mild atelectasis. No pleural effusion. The heart size is normal. No pericardial effusion. The liver and spleen are normal. There are changes of cholecystectomy. The pancreas, adrenal glands, and kidneys are normal. There are no dilated loops of bowel. There are changes of appendectomy. There are no pathologically enlarged lymph nodes. There is no free intraperitoneal fluid. There is mild thoracic and lumbar spondylosis. There are Schmorl's nodes at many levels. IMPRESSION: 1. No etiology for the patient's symptoms. Reviewed, dictated and finalized at location E.
== END 2025-08-29 08:23 | disposition home or self-care (01) ==
LOC: ANHIMG 08:24
PROVIDERS: PCP Internal Medicine; Visit Provider Nurse Practitioner Family
DX: R10.30 Lower abdominal pain, unspecified (principal)
CPT/HCPCS: 74177; Q9967